=== PATIENT | female | born 1970 | race African-American/Black ===

== ENCOUNTER 2017-03-24 16:33 | Emergency (ER) | payer MEDICAID ==
[~2017-03-24] VITALS: Ht 160 cm; Wt 68.0 kg
[2017-03-24] MEDS ORDERED: CO Q-10200 MG PO (17:06)
[2017-03-24] MEDS ORDERED: ENTRESTO 49 MG1 EACH PO (17:06)
[2017-03-24] MEDS ORDERED: VITAMIN D32000 UNI2 PO (17:06)
[2017-03-24] MEDS ORDERED: CARVEDILOL3.125 MG ORAL (17:06)
[2017-03-24 18:40] VITALS: BP 118/85
--- NOTE | 2017-03-24 22:36 | Emergency Room Report ---
History of Present Illness General Chief Complaint: Upper Respiratory Illness Source: Patient (JONATHAN GONSALEZ) Present Illness HPI The patient is a 46 old female with a stated history of CHF presenting for intermittent cough. She states that she has appointment with the loss prevention analyst in 3 days and wanted to get checked out. She denies any other symptoms including shortness of breath, chest pain, fever, chills, swelling (JONATHAN GONSALEZ) Allergies: Coded Allergies: No Known Allergies (Unverified , 03/24/17) Patient History Past Medical History: see triage record Pertinent Family History: none Last Menstrual Period: 02/23/17 Now: No Reviewed Nursing Documentation: PMH: Agreed, PSxH: Agreed (JONATHAN GONSALEZ) Nursing Documentation-PMH Hx Hypertension: Yes (JONATHAN GONSALEZ) Review of Systems All Other Systems: negative except mentioned in HPI (JONATHAN GONSALEZ) Physical Exam Vital Signs Date Time Temp Pulse Resp B/P (MAP) Pulse Ox O2 Delivery O2 Flow Rate FiO2 03/24/17 17:01 97.9 98 17 113/76 100 Room Air Sp02 EP Interpretation: reviewed, normal General Appearance: no apparent distress, alert, GCS 15, non-toxic Head: normocephalic, atraumatic Eyes: bilateral eye normal inspection, bilateral eye PERRL ENT: hearing grossly normal, normal pharynx, no angioedema, normal voice Respiratory: chest non-tender, lungs clear, normal breath sounds, no wheezing, speaking full sentences Cardiovascular #1: regular rate, rhythm, no edema Musculoskeletal: back normal, gait/station normal, normal range of motion, non- tender Neurologic: alert, oriented x3, responsive, motor strength/tone normal, sensory intact, speech normal Psychiatric: judgement/insight normal, memory normal, mood/affect normal, no suicidal/homicidal ideation Skin: normal color, no rash, warm/dry, well hydrated (JONATHAN GONSALEZ) Medical Decision Making PA Attestation Dr. Mcmanus is my supervising physician. Patient management was discussed with my supervising physician (JONATHAN GONSALEZ) Diagnostic Impression: Primary Impression: CHF (congestive heart failure) Qualified Codes: I50.9 - Heart failure, unspecified ER Course The patient is a 46 old female with a stated history of CHF presenting for intermittent cough DDx considered but not limited to: CHF, PNA, bronchitis, among others PE: Afebrile. NAD Lungs are clear to auscultation bilaterally RRR No peripheral edema Chest x-ray shows some enlargement of heart. No acute findings. She is NY'ed home and told to FU with PMD and loss prevention analyst as instructed (JONATHAN GONSALEZ) Chest X-Ray Diagnostic Results Chest X-Ray Diagnostic Results : Chest X-Ray Ordered: Yes # of Views/Limited/Complete: 1 View Indication: Other - cough EP Interpretation: Yes PA Xray: Interpretation reviewed, by supervising MD, and agrees with findings. Interpretation: no consolidation, no effusion, no pneumothorax, no acute cardiopulmonary disease Impression: No acute disease Electronically Signed by: Jonathan Gonsalez PA-C (JONATHAN GONSALEZ) Chest X-Ray Diagnostic Results : Electronically Signed by: Mikel documentation reviewed by me and is accurate, Kwan Mcmanus MD. (Kwan Mcmanus M.D.) Last Vital Signs Date Time Temp Pulse Resp B/P (MAP) Pulse Ox O2 Delivery O2 Flow Rate FiO2 03/24/17 18:40 97.9 20 118/85 97 Room Air 03/24/17 18:40 95 Status: improved (JONATHAN GONSALEZ) Disposition: HOME, SELF-CARE Condition: Improved Patient Instructions: Heart Failure Additional Instructions: I discussed my findings with the patient. All questions and concerns have been answered. Treatment and medication compliance have been addressed. I advised the patient that they need to follow up with PMD in 3-5 days. Return to ED if symptoms worsen, new symptoms arise, or if needed for any reason. Patient verbalized understanding of discharge instructions. Please keep your appointment with you loss prevention analyst next week as we discussed. JONATHAN GONSALEZ Mar 24, 2017 22:36 Kwan Mcmanus M.D. Mar 25, 2017 07:54
--- NOTE | 2017-03-27 15:05 | Diagnostic Imaging Report ---
Indication: Cough Technique: XRAY Chest 1v Comparison: None Findings: Cardiac silhouette is prominent. There is no consolidation or pleural effusion. Osseous structures demonstrate no acute abnormality. Impression: No acute cardiopulmonary disease.
== END 2017-03-24 18:40 | disposition home or self-care (01) ==
LOC: EMR 17:15
DX: I11.0 Hypertensive heart disease with heart failure (principal); R05 Cough
CPT/HCPCS: 71045; 99283

== ENCOUNTER 2019-05-07 13:17 | Emergency (ER) | payer MEDICARE, MEDICAID ==
[~2019-05-07] VITALS: Ht 160 cm; Wt 72.6 kg
[~2019-05-07 13:17] MED LIST: CARVEDILOL3.125 MG ORAL; CO Q-10200 MG PO; ENTRESTO 49 MG1 EACH PO; VITAMIN D32000 UNI2 PO
[2019-05-07] MEDS ORDERED: Fluorescein Strips LEFT EYE ONE (14:30)
[2019-05-07] MEDS ORDERED: Tetracaine 0.5% Opth 4ml Soln LEFT EYE ONE (14:30)
[2019-05-07 14:35] VITALS: BP 127/88
--- NOTE | 2019-05-07 14:35 | NUR ---
ED Nurse Note: PT CAME IN DUE TO LEFT EYE REDNESS/IRRITATION AND YELLOW DISCHARGE SINCE THIS MORNING. PER PT, SHE WAS CLEANING HER WINDOW BLINDS AND SOMETHING MUST HAVE HAD FELL ON HER EYE. DENIES BLURRING OF VISION.
[2019-05-07 15:42] VITALS: BP 130/89
--- NOTE | 2019-05-07 15:43 | NUR ---
ER DISCHARGE NOTE: Patient is cleared to be discharged per ERMD, pt is aox4, on room air, with stable vital signs. pt was given dc and prescription instructions, pt was able to verbalize understanding, pt id band removed. pt is able to ambulate with steady gait. pt took all belongings.
--- NOTE | 2019-05-07 15:48 | Emergency Room Report ---
History of Present Illness General Chief Complaint: Eye Problems Present Illness HPI 49-year-old female presents to the emergency department complaining of 9 out of 10 severity scratching sensation, increased lacrimation, erythema and purulent discharge from the left eye upon awakening this morning. Patient reports that she was dusting some blinds yesterday and felt something get into her eye that was very itchy. She reports she irrigated her eyes with water however she had the above symptoms upon awakening this morning. Patient noticed changes in her vision/loss of vision. She denies blurry vision, floaters, flashing lights or decrease in her visual field. Patient denies significant past medical history. No other aggravating or relieving factors at this time. She denies pain with eye movements. She reports that she does not use corrective lenses/contacts. Allergies: Coded Allergies: No Known Allergies (Unverified , 03/24/17) Patient History Past Medical History: see triage record Past Surgical History: none Pertinent Family History: none Last Menstrual Period: 03/02/20 Now: No Reviewed Nursing Documentation: PMH: Agreed; PSxH: Agreed Nursing Documentation-PMH Hx Hypertension: Yes Review of Systems All Other Systems: negative except mentioned in HPI Physical Exam Vital Signs Date Time Temp Pulse Resp B/P (MAP) Pulse Ox O2 Delivery O2 Flow Rate FiO2 05/07/19 13:25 99.0 91 17 127/88 (101) 96 Room Air Sp02 EP Interpretation: reviewed, normal General Appearance: no apparent distress, alert, GCS 15, non-toxic Head: normocephalic, atraumatic Eyes: bilateral eye normal inspection, bilateral eye PERRL, bilateral eye EOMI - Some increased fluorescein uptake to the lateral aspect of the left eye in a diffuse fashion, no evidence of pupil or iris involvement. No evidence of foreign body. Patient has positive pain relief upon tetracaine drop application. purulent dc is noted. , conjunctival injection., bilateral eye visual acuity - 20/20 Left, right and both, bilateral eye other ENT: hearing grossly normal, normal voice Neck: full range of motion Respiratory: lungs clear, normal breath sounds, speaking full sentences Cardiovascular #1: regular rate, rhythm Musculoskeletal: normal range of motion, gait/station normal, non-tender Neurologic: alert, motor strength/tone normal, oriented x3, sensory intact, responsive, speech normal Psychiatric: judgement/insight normal Skin: normal color, normal inspection Medical Decision Making PA Attestation Dr. Renteria is my supervising Physician whom patient management has been discussed with. Diagnostic Impression: Primary Impression: Conjunctivitis Qualified Codes: H10.32 - Unspecified acute conjunctivitis, left eye Additional Impression: Corneal abrasion, left Qualified Codes: S05.02XA - Injury of conjunctiva and corneal abrasion without foreign body, left eye, initial encounter ER Course 49-year-old female presents to the emergency department complaining of 9 out of 10 severity scratching sensation, increased lacrimation, erythema and purulent discharge from the left eye upon awakening this morning. Patient reports that she was dusting some blinds yesterday and felt something get into her eye that was very itchy. She reports she irrigated her eyes with water however she had the above symptoms upon awakening this morning. Patient noticed changes in her vision/loss of vision. She denies blurry vision, floaters, flashing lights or decrease in her visual field. Patient denies significant past medical history. No other aggravating or relieving factors at this time. She denies pain with eye movements. She reports that she does not use corrective lenses/contacts. Ddx considered but are not limited to: corneal abrasion, acute glaucoma, globe rupture, FB, Corneal Ulcer, conjunctivitis. Iridis Vital signs: are WNL, pt. is afebrile H&PE are most consistent with: corneal abrasion ORDERS: -Tetracaine and Fluorescein Stain of the Left eye: -Increase fluorescein uptake in a diffuse fashion in the lateral aspect of the left eye, there is no involvement of the iris or pupil. Negative [place] sign. Pt. had positive relief of pain with tetracaine drops. there was negative evidence of Fb, deep ulcer, or rupture. -Visual acuity was 20/20 ED INTERVENTIONS: none at this time. DISCHARGE: At this time pt. is stable for d/c to home. Will provide printed patient care instructions, and any necessary prescriptions. Care plan and follow up instructions have been discussed with the patient prior to discharge. . Last Vital Signs Date Time Temp Pulse Resp B/P (MAP) Pulse Ox O2 Delivery O2 Flow Rate FiO2 05/07/19 14:35 99.0 91 17 127/88 96 Room Air Disposition: HOME, SELF-CARE Condition: Stable Patient Instructions: Bacterial Conjunctivitis, [id number], Corneal Abrasion , [id number] Additional Instructions: Take medications as directed. Follow up with a Secretarial Stenographer in 3 days, even if your symptoms have resolved. --Please review list of primary care clinics, if you do not already have a primary care provider Return sooner to ED if new symptoms occur, or current symptoms become worse. - Please note that this Emergency Department Report was dictated using [employer] technology software, occasionally this can lead to erroneous entry secondary to interpretation by the dictation equipment. Jocy Morris May 07, 2019 15:48
[2019-05-07] MEDS ORDERED: TYLENOL EXTRA500 MG ORAL (15:49)
[2019-05-07] MEDS ORDERED: OCUFLOX5 ML OP (15:49)
== END 2019-05-07 15:40 | disposition home or self-care (01) ==
LOC: EMR 15:40
DX: S05.02XA Injury of conjunctiva and corneal abrasion without foreign body, left eye, initial encounter (principal); H10.32 Unspecified acute conjunctivitis, left eye; I10 Essential (primary) hypertension; X58.XXXA Exposure to other specified factors, initial encounter; Y93.E9 Activity, other interior property and clothing maintenance; Y92.019 Unspecified place in single-family (private) house as the place of occurrence of the external cause
CPT/HCPCS: 99283